=== PATIENT | male | born 1980 | race Caucasian/White ===

== ENCOUNTER 2018-11-15 21:36 | Emergency (ER) | payer SELFPAY ==
[~2018-11-15] VITALS: Ht 175.3 cm; Wt 68.2 kg
[2018-11-15 21:36] VITALS: BP 147/75
== END 2018-11-15 22:34 | disposition left against medical advice (07) ==
LOC: M ED 21:36
DX: R11.2 Nausea with vomiting, unspecified (principal); R19.7 Diarrhea, unspecified; Z53.21 Procedure and treatment not carried out due to patient leaving prior to being seen by health care provider